=== PATIENT | male | born 1970 | race Hispanic/Latino ===

== ENCOUNTER 2020-09-09 21:12 | Emergency (ER) | payer BC ==
[2020-09-09 21:49] LABS: BASOPHILS % (AUTO) 0.7 % (0.0-5.0); EOSINOPHILS % (AUTO) 4.1 % (0.0-8.0); HEMATOCRIT 43.8 % (42-54); LYMPHOCYTES % (AUTO) 34.8 % (21.0-51.0); MEAN CORPUSCULAR HEMOGLOBIN 29.7 pg (27.0-33.0); MEAN CORPUSCULAR HGB CONC 34.5 g/dL (32.0-36.0); MEAN CORPUSCULAR VOLUME 86.2 fL (79-99); MONOCYTES % (AUTO) 8.9 % (3.0-13.0); NEUTROPHILS % (AUTO) 51.1 % (40.0-77.0); PLATELET COUNT (AUTO) 226 K/uL (130-400); RED BLOOD CELL COUNT(AUTO) 5.08 MIL/uL (4.50-6.20); RED CELL DISTRIBUTION WIDTH 13.6 % (11.0-15.5); WHITE BLOOD COUNT (AUTO) 8.3 K/uL (4.8-10.8)
[2020-09-09] MEDS ORDERED: ASPIRIN 325 MG TABLET ONE (21:52)
[2020-09-09 22:02] LABS: PARTIAL THROMBOPLASTIN TIME 27.5 SEC (26.3-35.5)
[2020-09-09 22:05] LABS: POTASSIUM 3.7 mmol/L (3.5-5.1)
[2020-09-09 22:09] LABS: ALBUMIN 3.4 g/dL (3.5-5.0); BILIRUBIN,TOTAL 0.5 mg/dL (0.2-1.0)
[2020-09-09 22:13] LABS: INR 0.92 (0.85-1.15)
[2020-09-10] MEDS ORDERED: PANTOPRAZOLE 40 MG/VIAL ONE (00:42)
[2020-09-10] MEDS ORDERED: FAMOTIDINE/PF 20 MG/2 ML VIAL IV ONE (00:43)
== END 2020-09-10 01:03 | disposition home or self-care (01) ==
LOC: EDH 21:12
DX: R07.89 Other chest pain (principal); R42 Dizziness and giddiness; R06.02 Shortness of breath; Z20.828 Contact with and (suspected) exposure to other viral communicable diseases; E11.9 Type 2 diabetes mellitus without complications; E78.00 Pure hypercholesterolemia, unspecified; I10 Essential (primary) hypertension; Z79.899 Other long term (current) drug therapy
CPT/HCPCS: 36415; 71045; 80053; 82550; 83690; 83880; 84484; 85025; 85610; 85730; 87426; 93005; 96374; 96375; 99285; C9113; J3490

== ENCOUNTER 2020-10-08 08:18 | Inpatient (IN) | payer BC, OTHER ==
[~2020-10-08] VITALS: Ht 193 cm; Wt 136.7 kg
[2020-10-08 08:50] LABS: ABG BASE EXCESS 0.1 mmol/L (-2.0-3.0); ABG HCO3 22.9 mmol/L (21.0-28.0); ABG OXYGEN SATURATION 84.4 % (95.0-99.0); ABG PCO2 32 mmHg (35-48)
[2020-10-08 08:52] LABS: BASOPHILS % (AUTO) 0.1 % (0.0-5.0); HEMATOCRIT 48.7 % (42-54); MEAN CORPUSCULAR HEMOGLOBIN 28.5 pg (27.0-33.0); MEAN CORPUSCULAR HGB CONC 33.9 g/dL (32.0-36.0); MEAN CORPUSCULAR VOLUME 84.3 fL (79-99); NEUTROPHILS % (AUTO) 91.1 % (40.0-77.0); PLATELET COUNT (AUTO) 286 K/uL (130-400); RED BLOOD CELL COUNT(AUTO) 5.78 MIL/uL (4.50-6.20); RED CELL DISTRIBUTION WIDTH 13.2 % (11.0-15.5); WHITE BLOOD COUNT (AUTO) 20.5 K/uL (4.8-10.8)
[2020-10-08 09:03] LABS: CARBON DIOXIDE 29 mmol/L (21-32); CHLORIDE 97 mmol/L (101-111); CREATININE 1.1 mg/dL (0.5-1.5); GLOMERULAR FILTR. RATE CALC 75 mL/min (>60); GLUCOSE,RANDOM 174 mg/dL (70-105); POTASSIUM 3.7 mmol/L (3.5-5.1); SODIUM SERUM 136 mmol/L (136-145); UREA NITROGEN, BLOOD 27 mg/dL (7-18)
[2020-10-08 09:06] LABS: INR 0.96 (0.85-1.15); PROTHROMBIN TIME 10.3 SEC (9.6-11.6)
[2020-10-08 09:07] LABS: PARTIAL THROMBOPLASTIN TIME 26.1 SEC (26.3-35.5)
[2020-10-08 09:13] LABS: ALANINE AMINOTRANSFERASE 70 U/L (12-78); ASPARTATE AMINOTRANSFERASE 60 U/L (10-37); BILIRUBIN,TOTAL 0.8 mg/dL (0.2-1.0); CREATINE KINASE, TOTAL 366 U/L (21-232); LACTATE DEHYDROGENASE 652 U/L (81-234); MYOGLOBIN 170 ng/mL (10-92); TOTAL PROTEIN, SERUM 8.5 g/dL (6.0-8.3); TROPONIN I < 0.04 ng/mL (0.00-0.06)
[2020-10-08] MEDS ORDERED: AZITHROMYCIN 500MG+NS 250ML 250 ML IV ONE (09:23)
[2020-10-08] MEDS ORDERED: ENOXAPARIN SODIUM 120 MG/0.8ML SQ ONE ×2 (09:23→20:22)
[2020-10-08] MEDS ORDERED: ALBUTEROL INHALER 90MCG/INH IH ONE (09:23)
[2020-10-08] MEDS ORDERED: METHYLPREDNISOLONE SOD SUCC 125MG/2ML VIAL ONE (09:23)
[2020-10-08] MEDS ORDERED: FAMOTIDINE/PF 20 MG/2 ML VIAL IV ONE (09:24)
[2020-10-08] MEDS ORDERED: IVERMECTIN 3 MG TAB PO SCH (09:38)
[2020-10-08 09:56] LABS: ERYTHROCYTE SEDIMENTATION RATE 80 MM/HR (0-20)
[2020-10-08] MEDS ORDERED: BENZONATATE 100 MG CAPSULE PO ONE (10:57)
[2020-10-08] MEDS ORDERED: CLONIDINE HCL 0.1 MG TABLET PO PRN (12:30)
[2020-10-08] MEDS ORDERED: ERGOCALCIFEROL (VITAMIN D2) 50,000 UNIT CAPSULE PO SCH (12:30)
[2020-10-08] MEDS ORDERED: TEMAZEPAM 15 MG CAPSULE PO PRN (12:30)
[2020-10-08] MEDS ORDERED: ZOSYN 3.375GM +NS 50ML IV SCH (12:30)
[2020-10-08] MEDS ORDERED: POTASSIUM CHLORIDE 10% ELIXIR 20 MEQ/15 ML UDCUP PO PRN (12:30)
[2020-10-08] MEDS ORDERED: POTASSIUM CHLORIDE 20 MEQ ERTAB PO PRN (12:30)
[2020-10-08] MEDS ORDERED: DOCUSATE SODIUM 100 MG CAP PO PRN (12:30)
[2020-10-08] MEDS ORDERED: PHARMACY COMMUNICATION MISC SCH (12:30)
[2020-10-08] MEDS ORDERED: TRAMADOL HCL 50 MG TABLET PO PRN (12:30)
[2020-10-08] MEDS ORDERED: ACETAMINOPHEN 325 MG TAB PO PRN (12:30)
[2020-10-08] MEDS ORDERED: DEXTROSE 50%-WATER 50 ML DISP.SYRIN IV PRN (12:30)
[2020-10-08] MEDS ORDERED: LIDOCAINE HCL-MPF 1% 2ML VIAL IV PRN (12:30)
[2020-10-08] MEDS ORDERED: GLUCAGON 1MG KIT 1 MG ML IM PRN (12:30)
[2020-10-08] MEDS ORDERED: POTASSIUM CHLORIDE 20MEQ/100ML 100 ML IV PRN (12:30)
[2020-10-08] MEDS ORDERED: ASCORBIC ACID 500 MG TAB PO SCH (12:48)
[2020-10-08] MEDS: DEXAMETHASONE SOD PHOSPHATE 4 MG/ML 1ML VIAL IVP SCH (12:52)
[2020-10-08] MEDS: POLYETHYLENE GLYCOL 3350 17 GM POWD.PACK PO SCH (12:52)
[2020-10-08] MEDS: ZINC SULFATE 220 CAPSULE PO SCH (12:53)
[2020-10-08] MEDS: ASPIRIN 81MG TAB.CHEW PO SCH (12:53)
[2020-10-08] MEDS ORDERED: ZOSYN 3.375GM+NS 50ML 50 ML IV SCH (13:00)
[2020-10-08] MEDS: INSULIN HUMULIN R 100 UNIT/ML 3ML SQ SCH (13:05)
[2020-10-08] MEDS ORDERED: IOHEXOL-350 75 ML VIAL IV ONE (13:21)
[2020-10-08 14:28] LABS: CREATINE KINASE, TOTAL 319 U/L (21-232); MYOGLOBIN 153 ng/mL (10-92); TROPONIN I < 0.04 ng/mL (0.00-0.06)
[2020-10-08] MEDS ORDERED: ERGOCALCIFEROL (VITAMIN D2) 50,000 UNIT CAPSULE ONE (16:51)
[2020-10-08] MEDS ORDERED: ZINC SULFATE 220 CAPSULE ONE (16:51)
[2020-10-08] MEDS ORDERED: ASCORBIC ACID 500 MG TAB ONE (16:51)
[2020-10-08] MEDS ORDERED: ZOSYN 3.375GM+NS 50ML 50 ML IV ONE (16:51)
[2020-10-08] MEDS ORDERED: INSULIN HUMULIN R 100 UNIT/ML 3ML ONE ×2 (17:23→20:54)
[2020-10-08] MEDS ORDERED: COMPOUND IV REFRIGERATED 1 EACH IVSOLN MISC PRN (18:00)
[2020-10-08] MEDS ORDERED: REMDESIVIR (EUA) 520 200 MG in SODIUM CHLORIDE 0.9% 250 ML IV ONE (18:00)
[2020-10-08 19:38] LABS: CREATINE KINASE, TOTAL 271 U/L (21-232); MYOGLOBIN 128 ng/mL (10-92); TROPONIN I < 0.04 ng/mL (0.00-0.06)
[2020-10-08] MEDS ORDERED: ENOXAPARIN SODIUM 1 MG/KG SQ SCH (21:00)
[2020-10-08] MEDS: ZOSYN 3.375GM+NS 50ML 50 ML IV SCH (21:00)
[2020-10-08] MEDS: ENOXAPARIN SODIUM 120 MG/0.8ML SQ SCH (21:00)
[2020-10-09] MEDS ORDERED: ZOSYN 3.375GM+NS 50ML 50 ML IV ONE ×3 (00:42→21:57)
[2020-10-09 02:37] LABS: CREATINE KINASE, TOTAL 231 U/L (21-232); MYOGLOBIN 103 ng/mL (10-92); TROPONIN I < 0.04 ng/mL (0.00-0.06)
[2020-10-09] MEDS: ZOSYN 3.375GM+NS 50ML 50 ML IV SCH ×3 (05:00→21:00)
[2020-10-09 05:18] LABS: BASOPHILS % (AUTO) 0.1 % (0.0-5.0); MEAN CORPUSCULAR HEMOGLOBIN 28.2 pg (27.0-33.0); MEAN CORPUSCULAR HGB CONC 33.3 g/dL (32.0-36.0); MEAN CORPUSCULAR VOLUME 84.6 fL (79-99); MONOCYTES % (AUTO) 3.8 % (3.0-13.0); NEUTROPHILS % (AUTO) 87.1 % (40.0-77.0); PLATELET COUNT (AUTO) 303 K/uL (130-400); RED BLOOD CELL COUNT(AUTO) 5.32 MIL/uL (4.50-6.20); RED CELL DISTRIBUTION WIDTH 13.2 % (11.0-15.5); WHITE BLOOD COUNT (AUTO) 15.1 K/uL (4.8-10.8)
[2020-10-09 05:37] LABS: HEMOGLOBIN A1C 7.5 % (4.0-6.0)
[2020-10-09 05:56] LABS: ALBUMIN 2.4 g/dL (3.5-5.0); BILIRUBIN,TOTAL 0.5 mg/dL (0.2-1.0); CREATININE 0.9 mg/dL (0.5-1.5); CRP QUANTITATIVE 130.1 mg/L (0.00-9.0); MAGNESIUM 2.9 mg/dL (1.80-2.40); PHOSPHORUS 4.6 mg/dL (2.5-4.9); POTASSIUM 4.1 mmol/L (3.5-5.1); TOTAL PROTEIN, SERUM 7.1 g/dL (6.0-8.3)
[2020-10-09] MEDS: PHARMACY COMMUNICATION MISC SCH (06:00)
[2020-10-09 06:19] LABS: INR 0.99 (0.85-1.15); PROTHROMBIN TIME 10.6 SEC (9.6-11.6)
[2020-10-09] MEDS: ZINC SULFATE 220 CAPSULE PO SCH (09:00)
[2020-10-09] MEDS: POLYETHYLENE GLYCOL 3350 17 GM POWD.PACK PO SCH (09:00)
[2020-10-09] MEDS: ENOXAPARIN SODIUM 120 MG/0.8ML SQ SCH ×2 (09:00→21:00)
[2020-10-09] MEDS: DEXAMETHASONE SOD PHOSPHATE 4 MG/ML 1ML VIAL IVP SCH (09:00)
[2020-10-09] MEDS ORDERED: ASCORBIC ACID 500 MG TAB PO SCH (09:00)
[2020-10-09] MEDS: ASPIRIN 81MG TAB.CHEW PO SCH (09:00)
[2020-10-09] MEDS: AZITHROMYCIN 250 MG TABLET PO SCH (12:30)
[2020-10-09] MEDS ORDERED: INSULIN HUMULIN R 100 UNIT/ML 3ML ONE ×3 (13:10→21:58)
[2020-10-09] MEDS ORDERED: AZITHROMYCIN 250 MG TABLET PO ONE (13:12)
[2020-10-09] MEDS: REMDESIVIR (EUA) 520 100 MG in SODIUM CHLORIDE 0.9% 250 ML IV SCH (18:00)
[2020-10-09] MEDS ORDERED: ENOXAPARIN SODIUM 120 MG/0.8ML SQ ONE (21:57)
[2020-10-10] MEDS: ZOSYN 3.375GM+NS 50ML 50 ML IV SCH ×3 (05:00→21:00)
[2020-10-10] MEDS ORDERED: CEFTRIAXONE SODIUM 1 GM ONE (05:17)
[2020-10-10] MEDS: PHARMACY COMMUNICATION MISC SCH (06:00)
[2020-10-10 06:15] LABS: ALBUMIN 2.4 g/dL (3.5-5.0); BILIRUBIN,TOTAL 0.6 mg/dL (0.2-1.0); CREATININE 0.9 mg/dL (0.5-1.5); POTASSIUM 4.1 mmol/L (3.5-5.1); TOTAL PROTEIN, SERUM 7.2 g/dL (6.0-8.3)
[2020-10-10 07:17] LABS: ABG BASE EXCESS -0.6 mmol/L (-2.0-3.0); ABG HCO3 22.8 mmol/L (21.0-28.0); ABG OXYGEN SATURATION 92.2 % (95.0-99.0); ABG PCO2 34 mmHg (35-48)
[2020-10-10] MEDS ORDERED: ASPIRIN 81MG TAB.CHEW ONE (08:32)
[2020-10-10] MEDS ORDERED: DEXAMETHASONE SOD PHOSPHATE 10MG/ML 1ML VIAL ONE (08:33)
[2020-10-10] MEDS ORDERED: POLYETHYLENE GLYCOL 3350 17 GM POWD.PACK ONE (08:33)
[2020-10-10] MEDS ORDERED: ENOXAPARIN SODIUM 120 MG/0.8ML SQ ONE (08:33)
[2020-10-10] MEDS ORDERED: ZINC SULFATE 220 CAPSULE ONE (08:33)
[2020-10-10] MEDS: DEXAMETHASONE SOD PHOSPHATE 4 MG/ML 1ML VIAL IVP SCH (09:00)
[2020-10-10] MEDS: POLYETHYLENE GLYCOL 3350 17 GM POWD.PACK PO SCH (09:00)
[2020-10-10] MEDS: ZINC SULFATE 220 CAPSULE PO SCH (09:00)
[2020-10-10] MEDS: ASPIRIN 81MG TAB.CHEW PO SCH (09:00)
[2020-10-10] MEDS: ENOXAPARIN SODIUM 120 MG/0.8ML SQ SCH ×2 (09:00→21:00)
[2020-10-10] MEDS: AZITHROMYCIN 250 MG TABLET PO SCH (12:30)
[2020-10-10] MEDS ORDERED: INSULIN HUMULIN R 100 UNIT/ML 3ML ONE ×2 (13:08→18:52)
[2020-10-10] MEDS: INSULIN HUMULIN R 100 UNIT/ML 3ML SQ SCH ×3 (13:20→21:00)
[2020-10-10] MEDS ORDERED: AZITHROMYCIN 250 MG TABLET PO ONE (14:05)
[2020-10-10 14:17] VITALS: BP 150/80
[2020-10-10] MEDS: REMDESIVIR (EUA) 520 100 MG in SODIUM CHLORIDE 0.9% 250 ML IV SCH (18:00)
[2020-10-11 00:24] VITALS: BP 132/83
[2020-10-11 04:08] LABS: HEMATOCRIT 45.3 % (42-54); MEAN CORPUSCULAR HEMOGLOBIN 28.3 pg (27.0-33.0); MEAN CORPUSCULAR HGB CONC 33.6 g/dL (32.0-36.0); MEAN CORPUSCULAR VOLUME 84.2 fL (79-99); RED BLOOD CELL COUNT(AUTO) 5.38 MIL/uL (4.50-6.20); WHITE BLOOD COUNT (AUTO) 13.3 K/uL (4.8-10.8)
[2020-10-11 04:25] LABS: ALBUMIN 2.4 g/dL (3.5-5.0); BILIRUBIN,TOTAL 0.6 mg/dL (0.2-1.0); CRP QUANTITATIVE 28.4 mg/L (0.00-9.0); POTASSIUM 4.1 mmol/L (3.5-5.1); TOTAL PROTEIN, SERUM 6.7 g/dL (6.0-8.3)
[2020-10-11 05:42] VITALS: BP 118/52
[2020-10-11] MEDS: ZOSYN 3.375GM+NS 50ML 50 ML IV SCH ×3 (05:48→21:37)
[2020-10-11] MEDS: PHARMACY COMMUNICATION MISC SCH (06:00)
[2020-10-11] MEDS ORDERED: SODIUM CHLORIDE 0.9% 100 ML IV ONE (06:15)
[2020-10-11 07:17] LABS: ABG HCO3 26.1 mmol/L (21.0-28.0); ABG OXYGEN SATURATION 94.1 % (95.0-99.0); ABG PCO2 39 mmHg (35-48)
[2020-10-11] MEDS: INSULIN HUMULIN R 100 UNIT/ML 3ML SQ SCH ×4 (07:30→21:43)
[2020-10-11 08:32] VITALS: BP 146/79
[2020-10-11] MEDS: POLYETHYLENE GLYCOL 3350 17 GM POWD.PACK PO SCH (09:00)
[2020-10-11] MEDS: DEXAMETHASONE SOD PHOSPHATE 4 MG/ML 1ML VIAL IVP SCH (09:03)
[2020-10-11] MEDS: ZINC SULFATE 220 CAPSULE PO SCH (09:03)
[2020-10-11] MEDS: ASPIRIN 81MG TAB.CHEW PO SCH (09:04)
[2020-10-11] MEDS: ENOXAPARIN SODIUM 120 MG/0.8ML SQ SCH ×2 (09:06→21:36)
[2020-10-11 11:00] VITALS: BP 129/72
[2020-10-11] MEDS: AZITHROMYCIN 250 MG TABLET PO SCH (11:28)
[2020-10-11 16:27] VITALS: BP 129/78
[2020-10-11] MEDS: REMDESIVIR (EUA) 520 100 MG in SODIUM CHLORIDE 0.9% 250 ML IV SCH (17:48)
[2020-10-11 20:00] VITALS: BP 122/84
[2020-10-11] MEDS: DRONABINOL 2.5 MG CAP PO SCH (21:35)
[2020-10-12] VITALS: BP 127/58
[2020-10-12 04:32] LABS: HEMATOCRIT 43.9 % (42-54); MEAN CORPUSCULAR HEMOGLOBIN 28.6 pg (27.0-33.0); MEAN CORPUSCULAR HGB CONC 33.9 g/dL (32.0-36.0); MEAN CORPUSCULAR VOLUME 84.3 fL (79-99); RED BLOOD CELL COUNT(AUTO) 5.21 MIL/uL (4.50-6.20); RED CELL DISTRIBUTION WIDTH 12.9 % (11.0-15.5); WHITE BLOOD COUNT (AUTO) 11.1 K/uL (4.8-10.8)
[2020-10-12 04:42] LABS: CREATININE 0.9 mg/dL (0.5-1.5)
[2020-10-12] MEDS: PHARMACY COMMUNICATION MISC SCH (05:17)
[2020-10-12] MEDS: INSULIN HUMULIN R 100 UNIT/ML 3ML SQ SCH ×4 (05:17→20:45)
[2020-10-12] MEDS: ZOSYN 3.375GM+NS 50ML 50 ML IV SCH ×3 (05:17→20:37)
[2020-10-12 08:00] VITALS: BP 120/58
[2020-10-12] MEDS: DEXAMETHASONE SOD PHOSPHATE 4 MG/ML 1ML VIAL IVP SCH (08:35)
[2020-10-12] MEDS: ENOXAPARIN SODIUM 120 MG/0.8ML SQ SCH ×2 (08:37→20:37)
[2020-10-12] MEDS: ASPIRIN 81MG TAB.CHEW PO SCH (08:38)
[2020-10-12] MEDS: ZINC SULFATE 220 CAPSULE PO SCH (08:38)
[2020-10-12] MEDS: POLYETHYLENE GLYCOL 3350 17 GM POWD.PACK PO SCH (08:38)
[2020-10-12] MEDS: DRONABINOL 2.5 MG CAP PO SCH ×2 (09:00→20:37)
[2020-10-12 11:42] VITALS: BP 120/58
[2020-10-12] MEDS: AZITHROMYCIN 250 MG TABLET PO SCH (12:36)
[2020-10-12 16:04] VITALS: BP 111/67
[2020-10-12] MEDS: REMDESIVIR (EUA) 520 100 MG in SODIUM CHLORIDE 0.9% 250 ML IV SCH (18:37)
[2020-10-12] MEDS ORDERED: CLINDAMYCIN 600 MG/D5% WATER 50 ML IV ONE (19:51)
[2020-10-12 20:00] VITALS: BP 112/50
[2020-10-13] VITALS (7 sets, daily range): BP systolic 111–131; BP diastolic 59–76
[2020-10-13 04:51] LABS: CREATININE 0.8 mg/dL (0.5-1.5); POTASSIUM 4.1 mmol/L (3.5-5.1)
[2020-10-13] MEDS: ZOSYN 3.375GM+NS 50ML 50 ML IV SCH ×3 (05:31→20:20)
[2020-10-13] MEDS: PHARMACY COMMUNICATION MISC SCH (05:32)
[2020-10-13] MEDS: INSULIN HUMULIN R 100 UNIT/ML 3ML SQ SCH ×4 (06:40→20:34)
[2020-10-13] MEDS: FAMOTIDINE 20MG TAB 20 MG TAB PO SCH ×2 (09:00→20:20)
[2020-10-13] MEDS: POLYETHYLENE GLYCOL 3350 17 GM POWD.PACK PO SCH (09:00)
[2020-10-13] MEDS: DEXAMETHASONE SOD PHOSPHATE 4 MG/ML 1ML VIAL IVP SCH (09:08)
[2020-10-13] MEDS: DRONABINOL 2.5 MG CAP PO SCH ×2 (09:09→20:20)
[2020-10-13] MEDS: ZINC SULFATE 220 CAPSULE PO SCH (09:09)
[2020-10-13] MEDS: ASPIRIN 81MG TAB.CHEW PO SCH (09:09)
[2020-10-13] MEDS: ENOXAPARIN SODIUM 120 MG/0.8ML SQ SCH (09:13)
[2020-10-13] MEDS: AZITHROMYCIN 250 MG TABLET PO SCH (13:07)
[2020-10-13] MEDS: ENOXAPARIN SODIUM 80 MG/0.8 ML SQ SCH (21:10)
[2020-10-14] VITALS: BP 128/76
[2020-10-14 04:20] VITALS: BP 126/66
[2020-10-14 04:29] LABS: BASOPHILS % (AUTO) 0.1 % (0.0-5.0); EOSINOPHILS % (AUTO) 1.8 % (0.0-8.0); HEMATOCRIT 44.1 % (42-54); LYMPHOCYTES % (AUTO) 13.3 % (21.0-51.0); MEAN CORPUSCULAR HEMOGLOBIN 28.2 pg (27.0-33.0); MEAN CORPUSCULAR HGB CONC 33.6 g/dL (32.0-36.0); MONOCYTES % (AUTO) 2.2 % (3.0-13.0); NEUTROPHILS % (AUTO) 80.6 % (40.0-77.0); PLATELET COUNT (AUTO) 346 K/uL (130-400); RED BLOOD CELL COUNT(AUTO) 5.25 MIL/uL (4.50-6.20); WHITE BLOOD COUNT (AUTO) 10.6 K/uL (4.8-10.8)
[2020-10-14 04:47] LABS: ALANINE AMINOTRANSFERASE 72 U/L (12-78); ALBUMIN 2.4 g/dL (3.5-5.0); ASPARTATE AMINOTRANSFERASE 28 U/L (10-37); BILIRUBIN,TOTAL 0.6 mg/dL (0.2-1.0); CARBON DIOXIDE 29 mmol/L (21-32); CHLORIDE 102 mmol/L (101-111); CREATININE 0.8 mg/dL (0.5-1.5); GLOMERULAR FILTR. RATE CALC 108 mL/min (>60); GLUCOSE,RANDOM 106 mg/dL (70-105); PHOSPHORUS 3.3 mg/dL (2.5-4.9); POTASSIUM 4.3 mmol/L (3.5-5.1); SODIUM SERUM 138 mmol/L (136-145); TOTAL PROTEIN, SERUM 6.5 g/dL (6.0-8.3); UREA NITROGEN, BLOOD 18 mg/dL (7-18)
[2020-10-14] MEDS: ZOSYN 3.375GM+NS 50ML 50 ML IV SCH (05:09)
[2020-10-14] MEDS: INSULIN HUMULIN R 100 UNIT/ML 3ML SQ SCH ×4 (05:34→21:33)
[2020-10-14 08:30] VITALS: BP 110/72
[2020-10-14] MEDS: ENOXAPARIN SODIUM 80 MG/0.8 ML SQ SCH (09:00)
[2020-10-14] MEDS: DRONABINOL 2.5 MG CAP PO SCH ×2 (09:00→21:31)
[2020-10-14] MEDS: POLYETHYLENE GLYCOL 3350 17 GM POWD.PACK PO SCH (09:00)
[2020-10-14] MEDS: ZINC SULFATE 220 CAPSULE PO SCH (09:33)
[2020-10-14] MEDS: FAMOTIDINE 20MG TAB 20 MG TAB PO SCH ×2 (09:33→21:31)
[2020-10-14] MEDS: ASPIRIN 81MG TAB.CHEW PO SCH (09:34)
[2020-10-14] MEDS: DEXAMETHASONE SOD PHOSPHATE 4 MG/ML 1ML VIAL IVP SCH (09:35)
[2020-10-14 11:54] VITALS: BP 121/71
[2020-10-14 16:30] VITALS: BP 126/68
[2020-10-14 21:31] VITALS: BP 130/78
[2020-10-15 00:32] VITALS: BP 141/67
[2020-10-15 05:06] LABS: BASOPHILS % (AUTO) 0.3 % (0.0-5.0); EOSINOPHILS % (AUTO) 1.2 % (0.0-8.0); HEMATOCRIT 45.5 % (42-54); LYMPHOCYTES % (AUTO) 16.6 % (21.0-51.0); MEAN CORPUSCULAR HEMOGLOBIN 28.5 pg (27.0-33.0); MEAN CORPUSCULAR HGB CONC 34.1 g/dL (32.0-36.0); MEAN CORPUSCULAR VOLUME 83.8 fL (79-99); MONOCYTES % (AUTO) 3.1 % (3.0-13.0); PLATELET COUNT (AUTO) 352 K/uL (130-400); RED BLOOD CELL COUNT(AUTO) 5.43 MIL/uL (4.50-6.20); WHITE BLOOD COUNT (AUTO) 9.3 K/uL (4.8-10.8)
[2020-10-15 05:23] LABS: ALBUMIN 2.5 g/dL (3.5-5.0); BILIRUBIN,TOTAL 0.5 mg/dL (0.2-1.0); CREATININE 0.8 mg/dL (0.5-1.5); MAGNESIUM 2.3 mg/dL (1.80-2.40); PHOSPHORUS 3.6 mg/dL (2.5-4.9); POTASSIUM 4.1 mmol/L (3.5-5.1); TOTAL PROTEIN, SERUM 6.8 g/dL (6.0-8.3)
[2020-10-15 06:14] VITALS: BP 128/72
[2020-10-15] MEDS: INSULIN HUMULIN R 100 UNIT/ML 3ML SQ SCH ×4 (06:16→21:00)
[2020-10-15] MEDS: POLYETHYLENE GLYCOL 3350 17 GM POWD.PACK PO SCH (09:57)
[2020-10-15] MEDS: ENOXAPARIN SODIUM 80 MG/0.8 ML SQ SCH (10:01)
[2020-10-15] MEDS: ASPIRIN 81MG TAB.CHEW PO SCH (10:02)
[2020-10-15] MEDS: DRONABINOL 2.5 MG CAP PO SCH ×2 (10:02→20:35)
[2020-10-15] MEDS: ZINC SULFATE 220 CAPSULE PO SCH (10:02)
[2020-10-15] MEDS: FAMOTIDINE 20MG TAB 20 MG TAB PO SCH ×2 (10:02→20:35)
[2020-10-15] MEDS: DEXAMETHASONE SOD PHOSPHATE 4 MG/ML 1ML VIAL IVP SCH (10:03)
[2020-10-15 11:00] VITALS: BP 119/75
[2020-10-15 16:00] VITALS: BP 153/93
[2020-10-15 19:00] VITALS: BP 133/74
[2020-10-15 23:00] VITALS: BP 134/70
[2020-10-16 03:00] VITALS: BP 134/70
[2020-10-16 07:00] VITALS: BP 142/83
[2020-10-16] MEDS: INSULIN HUMULIN R 100 UNIT/ML 3ML SQ SCH ×2 (07:30→11:30)
[2020-10-16] MEDS: ENOXAPARIN SODIUM 80 MG/0.8 ML SQ SCH (08:51)
[2020-10-16] MEDS: ZINC SULFATE 220 CAPSULE PO SCH (08:51)
[2020-10-16] MEDS: DEXAMETHASONE SOD PHOSPHATE 4 MG/ML 1ML VIAL IVP SCH (08:51)
[2020-10-16] MEDS: DRONABINOL 2.5 MG CAP PO SCH (08:51)
[2020-10-16] MEDS: POLYETHYLENE GLYCOL 3350 17 GM POWD.PACK PO SCH (08:51)
[2020-10-16] MEDS: FAMOTIDINE 20MG TAB 20 MG TAB PO SCH (08:51)
[2020-10-16] MEDS: ASPIRIN 81MG TAB.CHEW PO SCH (08:51)
[2020-10-16 11:00] VITALS: BP 104/77
[2020-10-16] MEDS ORDERED: ZINC220C6 PO (12:17)
[2020-10-16] MEDS ORDERED: ASPI-1005 PO (12:17)
[2020-10-16] MEDS ORDERED: DEXA6TAB PO (12:17)
[2020-10-16] MEDS ORDERED: ASCO500C18 PO (12:17)
== END 2020-10-16 12:40 | disposition home or self-care (01) | DRG 177 ==
LOC: EDH 08:18 → EDHIP 12:23 → 2CV 10-10 23:57 → 2AH 10-13 14:34
PROVIDERS: ADMIT Internal Medicine Critical Care Medicine; ATTEND Internal Medicine Critical Care Medicine
PROC: XW13325 Transfusion of Convalescent Plasma (Nonautologous) into Peripheral Vein, Percutaneous Approach, New Technology Group 5 (ICD-10-PCS; 2020-10-09)
PROC: 5A0935A Assistance with Respiratory Ventilation, Less than 24 Consecutive Hours, High Flow/Velocity Cannula (ICD-10-PCS; 2020-10-11)
PROC: XW033E5 Introduction of Remdesivir Anti-infective into Peripheral Vein, Percutaneous Approach, New Technology Group 5 (ICD-10-PCS; principal; 2020-10-12)
PROC: 5A0935A Assistance with Respiratory Ventilation, Less than 24 Consecutive Hours, High Flow/Velocity Cannula (ICD-10-PCS; 2020-10-12)
PROC: 5A0935A Assistance with Respiratory Ventilation, Less than 24 Consecutive Hours, High Flow/Velocity Cannula (ICD-10-PCS; 2020-10-13)
PROC: 5A0935A Assistance with Respiratory Ventilation, Less than 24 Consecutive Hours, High Flow/Velocity Cannula (ICD-10-PCS; 2020-10-14)
DX: U07.1 COVID-19 (principal); J12.89 Other viral pneumonia; J96.01 Acute respiratory failure with hypoxia; D68.32 Hemorrhagic disorder due to extrinsic circulating anticoagulants; I10 Essential (primary) hypertension; T45.515A Adverse effect of anticoagulants, initial encounter; R04.0 Epistaxis; E66.01 Morbid (severe) obesity due to excess calories; E78.00 Pure hypercholesterolemia, unspecified; E11.9 Type 2 diabetes mellitus without complications; E78.5 Hyperlipidemia, unspecified; G47.33 Obstructive sleep apnea (adult) (pediatric); Z99.81 Dependence on supplemental oxygen; Y92.89 Other specified places as the place of occurrence of the external cause; Z68.36 Body mass index [BMI] 36.0-36.9, adult
CPT/HCPCS: 36415; 36600; 71045; 71275; 80048; 80053; 82550; 82728; 82803; 82948; 83036; 83605; 83615; 83735; 83874; 83880; 84100; 84145; 84484; 85025; 85027; 85378; 85610; 85651; 85730; 86140; 86900; 86901; 87040; 87426; 87804; 93005; 94667; 94760; G0378; J0456; J0696; J1100; J1650; J1815; J2543; J2930; J3490; J7050; Q0167; Q9967